=== PATIENT | male | born 1995 | race Caucasian/White ===

== ENCOUNTER 2017-01-12 14:57 | Emergency (ER) | payer BC ==
--- NOTE | 2017-01-12 15:14 | UC ---
Headache HPI - HPI Summary HPI Summary: 21 year old male presents with right sided tension headache not resolved by ibuprofen. - History Of Current Complaint Stated Complaint: HEADACHES Time Seen by Provider: 01/12/17 15:14 Hx Obtained From: Patient Onset/Duration: Lasting Days Currently Pain Is: Current Pain Scale(0-10)= - 5 - Allergies/Home Medications Allergies/Adverse Reactions: Allergies Allergy/AdvReac Type Severity Reaction Status Date / Time No Known Allergies Allergy Verified 01/12/17 15:21 Home Medications: Home Medications Ibuprofen [Ibuprofen 200] 400 mg PO ONCE PRN 01/12/17 [History Confirmed ] PMH/Surg Hx/FS Hx/Imm Hx Previously Healthy: Yes Review of Systems Constitutional: Negative Skin: Negative Eyes: Negative ENT: Negative Respiratory: Negative Cardiovascular: Negative Gastrointestinal: Negative Genitourinary: Negative Motor: Negative Neurovascular: Negative Musculoskeletal: Negative Neurological: Headache Psychological: Negative All Other Systems Reviewed And Are Negative: Yes Physical Exam Triage Information Reviewed: Yes Vital Signs Reviewed: Yes Eye Exam: Normal ENT Exam: Normal Dental Exam: Normal Neck exam: Normal Neck: Positive: 1 Respiratory Exam: Normal Cardiovascular Exam: Normal Abdominal Exam: Normal Musculoskeletal Exam: Normal Neurological Exam: Normal Psychological Exam: Normal Skin Exam: Normal Headache Course/Dx - Differential Dx/Diagnosis Provider Diagnoses: headache left sided Discharge - Discharge Plan Condition: Stable Disposition: HOME Prescriptions: Amoxicillin PO (*) [Amoxicillin 875 MG (*)] 875 mg PO BID #14 tab Methylprednisolone [Medrol Dosepak 4 MG*] 4 mg PO .SEE [employer]RYSTLE INSTRUCTION #21 tab Patient Education Materials: Sinusitis (ED), Cluster Headache (ED) Referrals: No Primary Care Phys,NOPCP [Primary Care Provider] -
[2017-01-12 15:22] VITALS: BP 119/68
== END 2017-01-12 15:34 | disposition home or self-care (01) ==
LOC: UCCORT 14:57
DX: R51 Headache (principal)
CPT/HCPCS: 99202; G0463